=== PATIENT | male | born 1985 | race Caucasian/White ===

== ENCOUNTER 2019-05-10 20:09 | Inpatient (IN) | payer BC ==
[~2019-05-10] VITALS: Ht 172.7 cm; Wt 90.0 kg
[~2019-05-10 20:09] MED LIST: LACT1CAP57 PO; MEDICAL NOTE; SULF1TAB31 PO
[2019-05-10 21:53] VITALS: Ht 172.7 cm; Wt 90.0 kg
[2019-05-10 22:00] VITALS: BP 133/68; PULSE 75; RESP 18
[2019-05-10] MEDS ORDERED: BISACODYL (EC) 5 MG TAB PO PRN (22:30)
[2019-05-10] MEDS ORDERED: NACL 0.9% 3 ML SYG IV SCH (22:30)
[2019-05-10] MEDS ORDERED: DOCUSATE SODIUM 100 MG CAP PO PRN (22:30)
[2019-05-10] MEDS ORDERED: ACETAMINOPHEN 325 MG TAB PO PRN (22:30)
[2019-05-10] MEDS ORDERED: VANCOMYCIN IV PER PHARMACY XX SCH (23:00)
[2019-05-10] MEDS ORDERED: morphine 2 MG INJ IV PRN (23:00)
[2019-05-11] MEDS: VANCOMYCIN 1 GM 250 ML IVPB SCH ×3 (00:20→16:58)
[2019-05-11 01:23] VITALS: BP 141/70; PULSE 93; RESP 18
[2019-05-11] MEDS: PIPER-TAZO 3.375 GM IV (PMX) 100 ML IVPB SCH ×4 (05:44→23:34)
[2019-05-11 08:13] VITALS: BP 128/72; PULSE 72; RESP 18
[2019-05-11] MEDS: HYDROCODONE/APAP (5/325) TAB PO PRN ×3 (10:05→20:55)
[2019-05-11 15:36] VITALS: BP 132/70; PULSE 87; RESP 18
[2019-05-11 19:54] VITALS: BP 112/64; PULSE 83; RESP 18
[2019-05-12] MEDS: VANCOMYCIN 1 GM 250 ML IVPB SCH ×3 (00:19→16:05)
[2019-05-12 02:08] VITALS: BP 119/68; PULSE 79; RESP 18
[2019-05-12] MEDS: HYDROCODONE/APAP (5/325) TAB PO PRN ×2 (04:01→21:37)
[2019-05-12] MEDS: PIPER-TAZO 3.375 GM IV (PMX) 100 ML IVPB SCH ×4 (06:14→23:47)
[2019-05-12 07:47] VITALS: BP 129/61; PULSE 84; RESP 18
[2019-05-12 13:38] VITALS: BP 118/58; PULSE 85; RESP 18
[2019-05-12 20:03] VITALS: BP 126/70; PULSE 78; RESP 18
[2019-05-13] MEDS: VANCOMYCIN 1 GM 250 ML IVPB SCH ×3 (00:26→16:08)
[2019-05-13 02:05] VITALS: BP 127/58; PULSE 77; RESP 18
[2019-05-13] MEDS: PIPER-TAZO 3.375 GM IV (PMX) 100 ML IVPB SCH ×4 (06:09→23:20)
[2019-05-13 08:30] VITALS: BP 120/63; PULSE 78; RESP 17
[2019-05-13 12:30] VITALS: BP 117/68; PULSE 87; RESP 19
[2019-05-13] MEDS: HYDROCODONE/APAP (5/325) TAB PO PRN ×2 (17:32→23:20)
[2019-05-13 19:27] VITALS: BP 126/66; PULSE 67; RESP 18
[2019-05-13] MEDS ORDERED: SOD CHLORIDE 0.9% 100 ML ONE (21:20)
[2019-05-13] MEDS ORDERED: IOHEXOL 300MG/ML 150 ML BTL ONE (21:20)
[2019-05-14] MEDS: VANCOMYCIN 1 GM 250 ML IVPB SCH ×4 (00:13→23:57)
[2019-05-14 02:05] VITALS: BP 122/64; PULSE 67; RESP 17
[2019-05-14] MEDS: PIPER-TAZO 3.375 GM IV (PMX) 100 ML IVPB SCH ×4 (05:01→23:13)
[2019-05-14 07:29] VITALS: BP 115/66; PULSE 63; RESP 18
[2019-05-14] MEDS: DIPHENHYDRAMINE 50 MG INJ IV PRN (12:21)
[2019-05-14 14:58] VITALS: BP_SYST 105; BP_SYST 119; BP_DIAS 65; BP_DIAS 67; PULSE 63; RESP 18
[2019-05-14] MEDS ORDERED: SOD CHLORIDE 0.9% 1,000 ML IV SCH (16:30)
[2019-05-14 20:04] VITALS: BP 132/68; PULSE 85; RESP 18
[2019-05-14] MEDS: HYDROCODONE/APAP (5/325) TAB PO PRN (20:09)
[2019-05-15] VITALS (17 sets, daily range): BP systolic 105–131; BP diastolic 58–78; PULSE 58–98; RESP 10–18
[2019-05-15] MEDS: HYDROCODONE/APAP (5/325) TAB PO PRN ×2 (00:25→22:17)
[2019-05-15] MEDS: DIPHENHYDRAMINE 50 MG INJ IV PRN ×2 (03:09→11:53)
[2019-05-15] MEDS: PIPER-TAZO 3.375 GM IV (PMX) 100 ML IVPB SCH ×2 (05:14→12:39)
[2019-05-15] MEDS: VANCOMYCIN 1 GM 250 ML IVPB SCH ×2 (08:37→17:27)
[2019-05-15] MEDS ORDERED: PROCHLORPERAZINE 10 MG INJ IV PRN (10:00)
[2019-05-15] MEDS ORDERED: HYDROmorphONE 1 MG/5 ML IV SYRINGE IV PRN ×3 (10:00)
[2019-05-15] MEDS ORDERED: ONDANSETRON 4 MG INJ IV PRN (10:00)
[2019-05-15] MEDS ORDERED: MEPERIDINE 25 MG INJ IV PRN (10:00)
[2019-05-15] MEDS ORDERED: DIPHENHYDRAMINE 50 MG INJ IV PRN (10:00)
[2019-05-15] MEDS ORDERED: FENTAnyl 50 MCG/ML VIAL IV PRN ×2 (10:00)
[2019-05-15] MEDS ORDERED: LIDOCAINE 2% (SDV) 5 ML INJ ONE (10:41)
[2019-05-15] MEDS ORDERED: FENTAnyl 50 MCG/ML VIAL ONE (10:41)
[2019-05-15] MEDS ORDERED: PROPOFOL 20 ML ONE ×2 (10:41→10:59)
[2019-05-15] MEDS ORDERED: MIDAZOLAM 1 MG/ML 2 ML INJ ONE (10:42)
[2019-05-15] MEDS ORDERED: FAMOTIDINE 20 MG INJ ONE (10:55)
[2019-05-15] MEDS ORDERED: ONDANSETRON 4 MG INJ ONE (10:55)
[2019-05-15] MEDS ORDERED: DEXAMETHASONE 4 MG/ML 5 ML INJ ONE (10:55)
[2019-05-15] MEDS: D5W-0.45 NACL + KCL 20 MEQ 1,000 ML IV SCH ×2 (12:39→21:05)
[2019-05-15] MEDS: CEFTRIAXONE 1 GM/50 ML (PMX) 50 ML IVPB SCH (15:12)
[2019-05-16] MEDS: VANCOMYCIN 1 GM 250 ML IVPB SCH ×3 (00:22→16:21)
[2019-05-16 01:48] VITALS: BP 134/74; PULSE 76; RESP 16
[2019-05-16] MEDS: D5W-0.45 NACL + KCL 20 MEQ 1,000 ML IV SCH ×2 (03:24→16:20)
[2019-05-16 07:27] VITALS: BP 126/70; PULSE 72; RESP 16
[2019-05-16] MEDS: DIPHENHYDRAMINE 50 MG INJ IV PRN (08:51)
[2019-05-16 14:04] VITALS: BP 112/69; PULSE 86; RESP 16
[2019-05-16] MEDS: CEFTRIAXONE 1 GM/50 ML (PMX) 50 ML IVPB SCH (14:39)
[2019-05-16] MEDS: HYDROCODONE/APAP (5/325) TAB PO PRN (18:05)
[2019-05-16 19:41] VITALS: BP 133/70; PULSE 90; RESP 18
[2019-05-17] MEDS: ALPRAZOLAM 0.25 MG TAB PO PRN ×2 (00:07→13:23)
[2019-05-17] MEDS: VANCOMYCIN 1 GM 250 ML IVPB SCH ×3 (00:09→16:15)
[2019-05-17 02:17] VITALS: BP 125/75; PULSE 77; RESP 17
[2019-05-17] MEDS: D5W-0.45 NACL + KCL 20 MEQ 1,000 ML IV SCH ×2 (03:05→06:31)
[2019-05-17 07:33] VITALS: BP 137/74; PULSE 89; RESP 20
[2019-05-17] MEDS ORDERED: VANCOMYCIN IV PER PHARMACY XX SCH (11:30)
[2019-05-17] MEDS ORDERED: CLINDAMYCIN 600 MG/D5W (PMX) 50 ML IVPB SCH (12:00)
[2019-05-17 14:19] VITALS: BP 133/69; PULSE 89; RESP 16
[2019-05-17] MEDS: HYDROCODONE/APAP (5/325) TAB PO PRN (17:19)
[2019-05-17 19:59] VITALS: BP 127/71; PULSE 75; RESP 18
[2019-05-18] MEDS: VANCOMYCIN 1 GM 250 ML IVPB SCH ×4 (00:11→22:56)
[2019-05-18] MEDS: ALPRAZOLAM 0.25 MG TAB PO PRN ×2 (00:13→14:06)
[2019-05-18 01:35] VITALS: BP 121/79; PULSE 63; RESP 17
[2019-05-18 07:46] VITALS: BP 134/72; PULSE 76; RESP 18
[2019-05-18 14:25] VITALS: BP 118/69; PULSE 80; RESP 18
[2019-05-18 19:39] VITALS: BP 127/72; PULSE 93; RESP 20
[2019-05-19] MEDS: HYDROCODONE/APAP (5/325) TAB PO PRN (00:15)
[2019-05-19] MEDS: DIPHENHYDRAMINE 50 MG INJ IV PRN (00:15)
== END 2019-05-19 01:10 | disposition home health service (06) | DRG 581 ==
LOC: 2NE 21:27
PROVIDERS: ADMIT Internal Medicine; ATTEND Internal Medicine
PROC: 0KDR0ZZ Extraction of Left Upper Leg Muscle, Open Approach (ICD-10-PCS; principal; 2019-05-15 10:30)
DX: L03.116 Cellulitis of left lower limb (principal); E66.9 Obesity, unspecified; Z68.30 Body mass index [BMI] 30.0-30.9, adult; E78.5 Hyperlipidemia, unspecified; B95.62 Methicillin resistant Staphylococcus aureus infection as the cause of diseases classified elsewhere; L02.416 Cutaneous abscess of left lower limb
CPT/HCPCS: 73700; 76536; 80048; 80061; 80202; 83036; 83735; 84443; 85025; 87070; 87075; 87102; 87116; J0696; J1100; J1170; J1200; J2250; J2270; J2405; J2543; J3010; J3370; J3480; J7030; Q9967